=== PATIENT | male | born 1945 | race African-American/Black ===

== ENCOUNTER 2021-10-08 13:20 | Emergency (ER) | payer MEDICARE ==
[~2021-10-08] VITALS: Ht 180.3 cm; Wt 76.2 kg
== END 2021-10-08 14:00 | disposition home or self-care (01) ==
LOC: ER 13:26
DX: I10 Essential (primary) hypertension (principal); E78.5 Hyperlipidemia, unspecified; Z85.46 Personal history of malignant neoplasm of prostate
CPT/HCPCS: 99282